=== PATIENT | female | born 1980 | race Caucasian/White ===

== ENCOUNTER 2024-01-08 16:13 | Emergency (ER) | payer OTHER ==
--- NOTE | 2024-01-08 16:44 | ED Physician Documentation ---
PD HPI ABD PAIN - Stated complaint Stated Complaint: GI/NAUSEA/ABD PX - Chief complaint Chief Complaint: Abd Pain - History obtained from History obtained from: Patient - Additional information Additional information: She had a bunionectomy on December 13 and is still on narcotic pain medication. Has not had a bowel movement at all in 5 days despite stool softeners and an enema. She has back and abdominal pain and is nauseous without vomiting. PD PAST MEDICAL HISTORY - Past Medical History Past Medical History: Yes Cardiovascular: Hypertension Respiratory: None Neuro: None Endocrine/Autoimmune: None GI: None DIRECTOR PAYER: Ovarian cysts : None HEENT: None Psych: None Musculoskeletal: None Derm: None - Past Surgical History Past Surgical History: Yes Ortho: Other - Present Medications Home Medications: Ambulatory Orders Medication Instructions Recorded Confirmed Aspirin [Aspirin EC] 325 mg PO DAILY 01/08/24 01/08/24 Gabapentin [Neurontin] 100 mg PO HS 01/08/24 01/08/24 Lisinopril [Zestril] 20 mg ORAL DAILY 01/08/24 01/08/24 oxyCODONE [Roxicodone] 5 mg PO Q6HR PRN 01/08/24 01/08/24 polyethylene glycoL 3350(BULK) 17 gm PO DAILY PRN #1 each 01/08/24 [Miralax] - Allergies Allergies/Adverse Reactions: Allergies Allergy/AdvReac Type Severity Reaction Status Date / Time No Known Drug Allergies Allergy Verified 01/08/24 16:19 - Social History Does the pt smoke?: No Smoking Status: Former smoker Does the pt drink ETOH?: No Does the pt have substance abuse?: No - Immunizations Immunizations are current?: Yes - POLST Patient has POLST: No PD ED PE NORMAL - Vitals Vital signs reviewed: Yes - General General: Alert and oriented X 3, Other (Appears uncomfortable) - Abdomen Abdomen: Non tender Results - Vitals Vitals: Vital Signs - 24 hr 01/08/24 16:20 Temperature 36.6 C Heart Rate 100 Respiratory 18 Rate Blood Pressure 129/93 H O2 Saturation 99 Oxygen O2 Source Room air PD Medical Decision Making - ED course ED course: 43-year-old with narcotic related fecal impaction. After an enema here she had a large BM and was feeling better. Departure - Departure Disposition: 01 Home, Self Care Clinical Impression: Fecal impaction Condition: Good Record reviewed to determine appropriate education?: Yes Instructions: ED Impaction Fecal Treated Prescriptions: polyethylene glycoL 3350(BULK) [Miralax] 17 gm PO DAILY PRN #1 each PRN Reason: Constipation Comments: You are seen today for a fecal impaction which resolved after an enema. Please return if worse. Reasonable to take the laxatives for a few days to keep yourself flushed. Forms: PCP List
[2024-01-08] MEDS: MORPHINE 2 MG/ML CARPUJECT IVP STA (17:03)
[2024-01-08 18:03] VITALS: BP 128/82; O2SAT 98
== END 2024-01-08 17:53 | disposition home or self-care (01) ==
LOC: ED 16:13
DX: T40.605A Adverse effect of unspecified narcotics, initial encounter (principal); K56.41 Fecal impaction; Z87.891 Personal history of nicotine dependence; I10 Essential (primary) hypertension
CPT/HCPCS: 96374; 99283